=== PATIENT | male | born 1990 | race Caucasian/White ===

== ENCOUNTER 2024-10-22 10:03 | Inpatient (IN) | payer BC ==
[~2024-10-22] VITALS: Ht 175.3 cm; Wt 88.6 kg
--- NOTE | 2024-10-22 10:32 | Physician Documentation ---
History of Present Illness ~ Stated Complaint: N/V Time Seen by MD: 10:37 HPI This is a 33-year-old male with a history of alcoholism reports being unable to consume alcohol for the last 2-3 days secondary to ETOH withdrawal says over the last two weeks he has been drinking 1.75 L of hard alcohol daily he states that he has been unable to old alcohol down which leads some vomiting. Reports feeling tremulous. States that he does not have any chest pain but has a complaint of allover abdominal pain. This patient states he has had a history of seizures secondary to alcohol withdrawal MD History: Who presents with complaint of three days of vomiting and nausea. Towards the end he has been having some blood in the emesis as well, has been vomiting about 20 times per day, with diarrhea twice per day as well. He denies fever, does report diffuse abdominal pain which he describes as burning. He has a history of alcohol abuse, has been drinking what he refers to his about a half a gal a day of alcohol but has been unable to do so now due to the vo miting. He did try drinking alcohol about 6 hours ago but was unable to keep it down. Medication Reconciliation Allergies: Coded Allergies: Penicillins (Verified Allergy, Unknown, 10/22/24) Past Medical History Past Medical History: Seizures (Alcohol withdrawal related) Smoking Status: Current every day smoker Alcohol Use: Alcoholic Drug Use: marijuana Review of Systems All Other Systems at this time: Reviewed and Negative Physical Exam Physical Exam General: Alert, tremulous Cardiovascular: Tachycardic Gastrointestinal: Soft, nontender, nondistended. Bowels sounds present. Extremities: Normal range of motion, no deformity. Neurologic: Oriented x4. Psychiatric: Anxious appearing Skin: Normal color, warm and dry. No edema, no ecchymosis. Exam: General: Pt is awake, alert, oriented x4 in mild distress due to tremor and nausea Head: Normocephalic and atraumatic. Eyes: Conjunctiva normal. ENT: Mucous membranes dry Neck: Supple. Chest: Clear to auscultation bilaterally, without rales, rhonchi, or wheezes. There is no accessory muscle use or retractions. Cardiac: Regular rate and rhythm without murmurs, gallops or rubs. Palpation of the chest wall is normal. Abd: Soft, nondistended, mildly tender in the epigastrium, with normoactive bowel sounds. No guarding or rebound. Extremities: Within normal limits without cyanosis, clubbing, or edema. Skin: [place], warm and dry with no significant rash appreciated. Neuro: Cranial nerves II-XII grossly intact. The gait is not tested Progress Results/Orders Results/Orders Orders - BALDOMERO POSADA MD Ultrasound Of Abdomen (10/22/24 11:17) Page Hospitalist (10/22/24 12:07) Completed Orders - BALDOMERO POSADA MD Ondansetron Inj. (Zofran 4mg/2ml Vial) (10/22/24 10:55) Pantoprazole 40mg Iv (Protonix 40mg Iv) (10/22/24 12:10) Pantoprazole 40mg Iv (Protonix 40mg Iv) (10/22/24 12:10) Medications Received in ER Medications (Trade) Dose Ordered Sig/Thong Route PRN Reason Start Time Stop Time Status Last Admin Dose Admin (sodium chloride 1000ml IV soln) 2,000 ml ONCE ONCE IVB 10/22/24 10:35 10/22/24 10:36 DC 10/22/24 10:50 2,000 ML (Ativan inj) 2 mg ONCE ONCE IV 10/22/24 10:35 10/22/24 10:36 DC 10/22/24 10:50 2 MG (thiamine inj.) 100 mg ONCE ONCE IV 10/22/24 10:35 10/22/24 10:36 DC 10/22/24 10:51 100 MG (folic acid inj.) 1 mg ONCE ONCE IV 10/22/24 10:35 10/22/24 10:37 DC 10/22/24 10:58 1 MG Magnesium Sulfate 50 ml @ 25 mls/hr ONCE ONCE IV 10/22/24 10:35 10/22/24 12:34 10/22/24 10:51 25 MLS/HR (Zofran 4mg/2ml vial) 4 mg ONCE ONCE IV 10/22/24 10:55 10/22/24 10:56 DC 10/22/24 10:58 4 MG Vital Signs 10/22/24 10/22/24 10/22/24 10:28 11:01 11:10 Temp 98.1 98.1 Pulse 121 104 Resp 18 12 12 B/P (MAP) 137/90 140/89 (106) Pulse Ox 99 97 O2 Flow Rate 2.0 Laboratory Tests Test 10/22/24 10:43 White Blood Count 10.5 Red Blood Count 5.28 Hemoglobin 16.9 Hematocrit 48.3 Mean Corpuscular Volume 91.5 Mean Corpuscular Hemoglobin 31.9 H Mean Corpuscular Hemoglobin Concent 34.9 Red Cell Distribution Width 17.8 H Platelet Count 326 Mean Platelet Volume 6.2 L Neutrophils (%) (Auto) 72.7 Lymphocytes (%) (Auto) 16.3 L Monocytes (%) (Auto) 10.1 Eosinophils (%) (Auto) 0.4 Basophils (%) (Auto) 0.5 Neutrophils # (Auto) 7.6 Lymphocytes # (Auto) 1.7 Monocytes # (Auto) 1.1 H Eosinophils # (Auto) 0.0 Basophils # (Auto) 0.1 CBC Comment Sodium Level 133 L Potassium Level 3.2 L Chloride Level 84 L Carbon Dioxide Level 36.3 H Anion Gap 13 Blood Urea Nitrogen 8 Creatinine 1.42 H Estimated GFR/1.73 m2 57 BUN/Creatinine Ratio 5.6 L Glucose Level 112 H Calcium Level 10.0 Total Bilirubin 1.5 H Aspartate Amino Transf (AST/SGOT) 104 H Alanine Aminotransferase (ALT/SGPT) 103 H Alkaline Phosphatase 134 H Total Protein 8.3 H Albumin 4.7 Globulin 3.6 Albumin/Globulin Ratio 1.3 Lipase 24 Chemistry Comments Re-Evaluation Re-Evaluation : Re-Evaluation Time: 12:03 Progress Patient still tremulous, but no vomiting. Ultrasound was performed and is negative for any signs of biliary obstruction. Lipase negative so no pancreatitis present. Consults/PCP Consults/PCP : Time Call Requested: 12:06 Consult Reason/Comments: Hospitalist Additional Comment 12:15 Case d/w Dr. Monson's team, will admit Medical Decision Making Additional Comment Patient with history of alcoholism, attempting to stop, now with significant nausea and vomiting, with some degree of upper GI bleeding. He remains tremulous after treatment with benzodiazepines in the ED, and given his history of seizures with withdrawal we will plan admission for further evalu ation and management of his withdrawal as well as serial hemoglobin to monitor the GI bleeding. Departure Time of Disposition: 12:04 Admitted to Inpatient Unit: yes, to hospitalist Impression: Primary Impression: Alcohol withdrawal syndrome Qualified Codes: F10.939 - Alcohol use, unspecified with withdrawal, unspecified Additional Impressions: GI bleed Qualified Codes: K92.2 - Gastrointestinal hemorrhage, unspecified History of seizure due to alcohol withdrawal Transaminitis Elevated bilirubin Condition: Fair Referrals: NO PRIMARY CARE PROVIDER (PCP) Education Educated: Patient Educated regarding: diagnosis, treatment Signature Scribe Signature: Attestation: REMY WEISS NP Oct 22, 2024 10:32 BALDOMERO POSADA MD Oct 22, 2024 10:45
[2024-10-22] MEDS: normal saline 1000ML IV soln IVB ONE (10:50)
[2024-10-22] MEDS: magnesium sulf-water 2g/50mL 50 ML IV ONE (10:51)
[2024-10-22] MEDS: thiamine 100mg/ml 2ml inj. IV ONE (10:51)
[2024-10-22 10:52] LABS: MEAN PLATELET VOLUME 6.2 FL (7.4-10.4); RED CELL DISTRIBUTION WIDTH 17.8 % (11.5-14.5)
[2024-10-22] MEDS: ondansetron/PF 4mg/2ml inj IV ONE (10:58)
[2024-10-22] MEDS: folic acid 1mg/0.2ml inj IV ONE (10:58)
[2024-10-22 11:07] LABS: CREATININE 1.42 MG/DL (0.60-1.10); TOTAL CARBON DIOXIDE 36.3 MMOL/L (24-32); eCRCL 73 ML/MIN; eGFR 57 ML/MIN
[2024-10-22] MEDS ORDERED: pantoprazole 40mg IV 80 MG in normal saline 100ml IV soln 100 ML IV ONE (12:10)
[2024-10-22] MEDS ORDERED: haloperidol lactate 5mg/ml inj IM PRN (12:55)
--- NOTE | 2024-10-22 12:59 | RADIOLOGY REPORT ---
CLINICAL INFORMATION: Elevated bilirubin. Rule out obstruction. Nausea and vomiting. TECHNIQUE: Grayscale sonographic imaging of the right upper quadrant of the abdomen was performed, a ssisted by color Doppler techniques. COMPARISON: None FINDINGS: The gallbladder wall measures 1.2 mm in thickness, within normal limits. There is, tail artifact of the gallbladder fundus, may be seen with adenomyomatosis. No stones are seen. Negative re ported sonographic fernandez's sign. The common bile duct measures 3.4 mm in diameter, within normal li mits. Liver is enlarged, measuring up to 20.2 cm in craniocaudal dimension. Unremarkable echogenicity of th e liver. Small volume ascites visualized. The pancreas is obscured by bowel gas. The right kidney measures 11.3 cm. There is no hydronephrosis. Right renal cortical echogenicity a nd cortical thickness are within normal limits. IMPRESSION: 1. Findings in the gallbladder may be seen with adenomyomatosis in the appropriate clinical setting. No gallstones or evidence of acute cholecystitis. 2. No biliary ductal dilatation. 3. Hepatomegaly. 4. Small volume ascites.
[2024-10-22] MEDS ORDERED: mag hydrox/Alum hydrox/simeth 30ml oral suspension PO PRN (14:25)
[2024-10-22] MEDS ORDERED: magnesium hydroxide 30ml (MOM) UD suspension PO PRN (14:25)
[2024-10-22] MEDS ORDERED: magnesium sulf-water 4G/100mL 100 ML IV PRN (14:25)
[2024-10-22] MEDS ORDERED: potassium Cl 20 mEq SR tablet PO PRN (14:25)
[2024-10-22] MEDS ORDERED: ondansetron/PF 4mg/2ml inj IV PRN (14:25)
[2024-10-22] MEDS ORDERED: magnesium sulf-water 2g/50mL 50 ML IV PRN (14:25)
[2024-10-22] MEDS ORDERED: potassium Cl 40MEQ/1/2NS 520ml 520 ML IV PRN (14:25)
[2024-10-22] MEDS ORDERED: dextrose 50%-water 50ml dispensing syringe IV PRN (14:25)
[2024-10-22] MEDS ORDERED: magnesium Cl slow-release 64mg tablet PO PRN (14:25)
--- NOTE | 2024-10-22 14:32 | ELECTROCARDIOGRAPH REPORT ---
[facility] Test Date: 2024-10-22 Test Time: 10:42:40 Pat Name: SABINO PHAM Department: EMERGENCY ROOM Room: ED 1 1 Gender: M [employer]ile [employer]ter: ILEANA : 1990 Requested By: DEPARTMENT EMERGENCY Order Number: [id number] Reading MD: Measurements Intervals [place] Rate: 108 P: 76 VA: 149 QRS: 46 QRSD: 89 T: 40 QT: 345 QTc: 463 Interpretive Statements Sinus tachycardia Please click the below link to view image of tracing.
--- NOTE | 2024-10-22 14:44 | HISTORY AND PHYSICAL-Residence ---
History & Physical Providers to CC Resident Creating Document: FLAKITA HAY RES ~ History of Present Illness Reason for Admit\Complaint: Alcohol intoxication History of Present Illness This is a 33-year-old male with a history of alcoholism reports being unable to consume alcohol for the last 2-3 days secondary to alcohol withdrawal . Patient had multiple episodes of vomiting and of about 50 mL of hematemesis. Patient has mid epigastric pain. Patient has a past history of MRSA. Patient admits to being IV drug use of heroin and marijuana. Allergies: Coded Allergies: Penicillins (Verified Allergy, Unknown, 10/22/24) Past Medical History Past Medical History MRSA positive 10 years back Past Surgical History Surgical History Comment Debridement of the left shoulder post MRSA infection after injecting IV drugs Past Social History Social History Comment Alcoholic: For the last 15 years, he used to drink but the last 2 weeks he has had 1-1.5 L of vodka every day. Patient has history of IV heroin and marijuana use The patient denies any smoking history Family history Father has a history of parkinsonism Mother has a history of bipolar and schizophrenia Smoking: Other Alcohol Use: Alcoholic Drug Use: Marijuana, Heroin (Marijuana and heroin) Lives with: Other (Friends) Lives In: Home Occupation: employed ROS All Other Systems: Reviewed and Negative (Except for pertinent positive symptoms) Gastrointestinal: Reports: abdomen distended, abdominal pain Exam Vitals: Vital Signs Date Time Temp Pulse Resp B/P (MAP) Pulse Ox O2 Delivery O2 Flow Rate FiO2 10/22/24 13:19 110 12 126/73 (90) 94 10/22/24 12:48 98.1 2.0 General: General:Alert and oriented x4 HEENT:Normocephalic.Pupils equal round reactive to light and accommodation. Extraocular movements intact. Oral and nasal mucosa moist Neck:Trachea is in midline. No masses or JVD Chest:Bilateral normal breath sounds. No crackles, rhonchi or wheezes Cardiovascular: Tachycardic in the low 120s S1-S2 normal. No rubs or murmurs Abdomen: Patient has a burn scar on his abdomen and has tenderness in the epigastric region Extremities: No edema or cyanosis bilateral pulses felt Central Nervous System:No gross sensory or motor deficits. Skin: Warm and dry Diagnostic Data Last Recorded Lab Results: 10/22/24 1043 10/22/24 1043 Additional Plan Alcohol intoxication:CIWA-Ar score 10 for Alcohol Withdrawal Patient is a chronic alcoholic,has had 1.5-2 L of vodka for the last 2 weeks but could not drink anything since the last 3 days. He had repeated episodes of vomiting with 50 mL of hematemesis. Patient has been initiated with thiamine,folic acid and severe alcohol withdrawal program. Counseled the patient extensively on cessation of alcohol. Abdominal pain Region: Epigastric pain Differential diagnosis: Pancreatitis, repeated emesis,GERD,peptic ulcer disease,gastritis Patient complains of epigastric abdominal pain and rates it a 5 on 10,not radiating. Patient has mild tenderness on palpation near the epigastric area. Patient has normal levels of amylase and lipase. Patient has an AST 103 and ALT of 104 . Ultrasound abdomen reported:hepatomegaly and small volume ascites. Hematemesis Patient had few episodes of hematemesis of about 50 mL overall. His hemoglobin is at 16.9 we will continue to monitor his hemoglobin regularly. And plan for GI consult if necessary. Repeat hemogram has been ordered for 5:30 p.m. today. MRSA Patient has a past history of MRSA which was positive due to repeated IV injections of heroin 10 years back. During that time he had undergone debridement of his left for the same Withdrawal seizures Patient had 2 episodes withdrawal seizures in the past when he tried to quit alcohol. Code Status: full code DVT Prophylaxis: Heparin subcutaneous Analgesia/Sedation: Morphine, Dilaudid, [place] p.r.n. Lines/Tubes: PIV Gi Prophylaxis: Protonix Nutrition: NPO Prognosis: Guarded Disposition: Patient is on severe alcohol withdrawal protocol. We will continue to monitor the patient for any hematemesis and alcohol withdrawal symptoms Flakita Hay MD PGY-1 resident Date of Service: Oct 22, 2024 Billing Provider: SIOBHAN MENENDEZ MD,FLAKITA, RES Oct 22, 2024 14:44
--- NOTE | 2024-10-22 15:14 | RADIOLOGY REPORT ---
Exam: CT CT ABDOMEN PELVIS History: to rule out cirrhosis Comparison Study: None TECHNIQUE: Multidetector CT of the abdomen and pelvis was performed from lung bases to pubic symphysi s. Imaging was performed without IV contrast. Axial, coronal, and sagittal multiplanar reformats were obtained from the axial data set by the technologist. RADIATION DOSE: DLP 1170.15 mGy.cm; CTDI vol 24.0 mGy. Findings: Lungs: The lung bases are clear. Heart: No cardiomegaly or pericardial effusion. Liver: The liver measures 20.6 cm in craniocaudal dimension. Fatty infiltration of the liver. Normal hepatic contour. Gallbladder: Unremarkable. Spleen: Unremarkable Pancreas: Unremarkable Adrenals: Unremarkable Kidneys: Unremarkable GI tract: Unremarkable : Unremarkable. Vasculature: Unremarkable Lymphadenopathy: Absent Peritoneum: No ascites Musculoskeletal: Unremarkable Soft tissues: Unremarkable Impression: 1. No acute abdominopelvic abnormalities. 2. Hepatomegaly with hepatic steatosis. 3. Normal hepatic contour.
[2024-10-22 15:30] LABS: LEUKOCYTE ESTERASE ,URINE NEGATIVE (Neg); NITRITES, URINE NEGATIVE (Neg); OCCULT BLOOD,URINE MODERATE (Neg)
[2024-10-22 15:31] LABS: UA COLLECTION TYPE CLN CATCH MIDSTREAM
[2024-10-22 15:38] LABS: MUCUS STRANDS NONE SEEN /LPF (Neg); SQUAMOUS EPITHELIAL CELL,UR NONE SEEN /LPF (FEW)
[2024-10-22] MEDS ORDERED: BUPR1FIL3 SL (15:47)
[2024-10-22] MEDS: potassium Cl 20 mEq SR tablet PO PRN (16:04)
[2024-10-22] MEDS: normal saline 1000ml 1,000 ML IV ONE (16:05)
[2024-10-22 16:23] VITALS: BP 132/83; PULSE 122; RESP 18; TEMP 98.4; O2SAT 94
[2024-10-22 16:35] VITALS: RESP 16; O2SAT 94
[2024-10-22] MEDS: normal saline 1000ml 1,000 ML IV SCH (17:28)
[2024-10-22 17:58] LABS: MEAN PLATELET VOLUME 6.6 FL (7.4-10.4); RED CELL DISTRIBUTION WIDTH 17.8 % (11.5-14.5)
[2024-10-22 18:00] VITALS: BP 132/83; PULSE 122; RESP 16; TEMP 97.2; O2SAT 97
[2024-10-22 20:00] VITALS: BP_SYST 128; BP_SYST 130; BP_DIAS 79; BP_DIAS 81; BP_DIAS 86; PULSE 104; PULSE 106; PULSE 111; RESP 16; O2SAT 96
[2024-10-22] MEDS: K and/or MAG REPLACEMENT MC SCH (20:00)
[2024-10-22] MEDS: docusate sod 100mg capsule PO SCH (20:00)
[2024-10-22] MEDS: heparin, porcine 5000 units/ml vial SQ SCH (21:00)
[2024-10-22] MEDS: thiamine 100mg/ml 2ml inj. IV SCH (21:01)
[2024-10-22 22:00] VITALS: BP 133/81; PULSE 105; RESP 16; TEMP 98; O2SAT 96
[2024-10-22 22:04] LABS: MEAN PLATELET VOLUME 6.4 FL (7.4-10.4); RED CELL DISTRIBUTION WIDTH 17.5 % (11.5-14.5)
[2024-10-22] MEDS: nicotine 21mg patch - 24 hr TD SCH (22:11)
--- NOTE | 2024-10-23 02:22 | ELECTROCARDIOGRAPH REPORT ---
[facility] Test Date: 2024-10-22 Test Time: 14:43:01 Pat Name: SABINO PHAM Department: EMERGENCY ROOM Room: ORTHO [facility] [place] B Gender: M [employer]: : 1990 Requested By: DEPARTMENT EMERGENCY Order Number: [id number] Reading MD: Measurements Intervals [place] Rate: 110 P: 63 WI: 168 QRS: 26 QRSD: 86 T: 10 QT: 350 QTc: 474 Interpretive Statements Sinus tachycardia Borderline prolonged QT interval Please click the below link to view image of tracing.
[2024-10-23 05:54] LABS: MEAN PLATELET VOLUME 6.7 FL (7.4-10.4); RED CELL DISTRIBUTION WIDTH 17.4 % (11.5-14.5)
[2024-10-23 06:00] VITALS: BP 133/93; PULSE 94; RESP 16; TEMP 97; O2SAT 99
[2024-10-23 06:01] LABS: CHOL/HDL RATIO 3.0 (0.00-4.99); CREATININE 1.41 MG/DL (0.60-1.10); LDL CHOLESTEROL 53 MG/DL (50-100); PHOSPHORUS 2.8 MG/DL (2.3-4.5); TOTAL CARBON DIOXIDE 31.6 MMOL/L (24-32); eCRCL 74 ML/MIN; eGFR 58 ML/MIN
[2024-10-23 08:00] VITALS: BP_SYST 101; BP_SYST 105; BP_SYST 109; BP_DIAS 65; BP_DIAS 70; BP_DIAS 78; PULSE 70; PULSE 72; PULSE 74
[2024-10-23] MEDS: buprenorphine/naloxone 8MG-2MG SUBlingual film SL SCH (08:13)
[2024-10-23] MEDS: folic acid 1mg/0.2ml inj IV SCH (08:20)
[2024-10-23 10:00] VITALS: BP 105/84; PULSE 92; RESP 14; TEMP 98; O2SAT 98
[2024-10-23 11:17] LABS: MEAN PLATELET VOLUME 6.6 FL (7.4-10.4); RED CELL DISTRIBUTION WIDTH 17.6 % (11.5-14.5)
--- NOTE | 2024-10-23 13:01 | CARDIOLOGY REPORT ---
APPROVED REPORT EXAM: Comprehensive 2D, Doppler, and color-flow Echocardiogram. Patient Location: ER 1 Blood Pressure: 132/93 mmHg Heart Rate: 107 bpm Rhythm: SINUS TACHYCARDIA Indications HYPERTENSION [employer]: NONE Previous echo: NONE 2D Dimensions RVDd 3.2 cm IVSd 0.7 (0.7-1.1cm) LVDd 4.9 cm PWd 0.7 (0.7-1.1cm) IVSs 1.2 (0.8-1.2cm) LVDs 3.1 (2.5-4.0cm) PWs 1.5 (0.8-1.2cm) LVOT Diameter 2.17 (1.8-2.4cm) LVEF(%) 65.4 (>50%) FS (%) 35.9 % SV 72.8 ml CO 7.9 L/min M-Mode Dimensions Left Atrium(MM) 4.04 (2.5-4.0cm) Aortic Root 2.79 (2.2-3.7cm) Aortic Cusp Exc 2.08 (1.5-2.0cm) Aortic Valve AoV Peak Miguel. 182.6 cm/s AoV VTI 25.2 cm AO Peak GR. 13.3 mmHg AO Mean GR. 8 mmHg LVOT VTI 17.94 cm LVOT Peak Miguel. 162.0 cm/s EDSON(VTI)/BSA 2.64 cm2/m2 EDSON (VTI) 2.64 cm2 Mitral Valve MV E Velocity 84.9 cm/s MV Peak Gr. 7 mmHg MV DECEL TIME 100 ms MV A Velocity 56.7 cm/s MV PHT 46 ms E/A Ratio 1.5 MVA (PHT) 4.78 cm2 MV [id number] cm/s TDI Lateral E' P. V18.61 cm/s E/Lateral E' 4.6 LEFT VENTRICLE Normal LV size and wall thickness. Overall systolic function is normal. LVEF is 65%. RIGHT VENTRICLE RV is normal size and function. ATRIA Left atrium is mildly dilated. AORTIC VALVE Trileaflet AV appears normal without stenosis. No insufficiency. MITRAL VALVE Mild MV annular calcification without stenosis. Trace regurgitation. TRICUSPID VALVE TV appears structurally normal with trace regurgitation. PULMONIC VALVE Normal PV without stenosis, physiologic insufficiency. GREAT VESSELS The aortic root is normal in size. PERICARDIUM Normal pericardium. No effusion. Other Information Study Quality: Adequate, but TDS subcostal view.
[2024-10-23 14:43] LABS: MEAN PLATELET VOLUME 6.4 FL (7.4-10.4); RED CELL DISTRIBUTION WIDTH 17.7 % (11.5-14.5)
--- NOTE | 2024-10-23 15:04 | PROGRESS NOTE- Residence ---
Progress Note - Resident Providers to CC Resident Creating Document: FLAKITA HAY RES ~ Antibiotic Timeout Antibiotic Ordered?: No Subjective Patient was seen and examined at bedside. Patient claims he continues to feel better but appeared tremulous. No episodes of emesis Objective Vital Signs Date Time Temp Pulse Resp B/P (MAP) Pulse Ox O2 Delivery O2 Flow Rate FiO2 10/23/24 10:00 98.0 92 14 105/84 (91) 98 Room Air 10/23/24 08:00 0.0 General:Alert and oriented x4 HEENT:Normocephalic.Pupils equal round reactive to light and accommodation, scleral icterus present. Extraocular movements intact. Oral and nasal mucosa moist. Neck:Trachea is in midline. No masses or JVD Chest:Bilateral normal breath sounds. No crackles, rhonchi or wheezes Cardiovascular: Tachycardic in the low 120s S1-S2 normal. No rubs or murmurs Abdomen: Patient has a burn scar on his abdomen and has tenderness in the epigastric region Extremities: No edema or cyanosis bilateral pulses felt Central Nervous System:No gross sensory or motor deficits. Skin: Warm and dry Result Diagram: 10/23/24 1422 10/23/24 0511 Counseling Services Smoking & Tobacco Cessation: > 10 Minutes (We reiterated the patient multiple times on the importance of cessation of alcohol and smoking. Patient clearly understands the significant impact of alcohol and smoking) Assessment Assessment This is a 33-year-old male with a history of alcoholism reports being unable to consume alcohol for the last 2-3 days secondary to alcohol withdrawal . Patient had multiple episodes of vomiting and of about 50 mL of hematemesis. Patient has mid epigastric pain. Patient has a past history of MRSA. Patient admits to being IV drug use of heroin and marijuana. Patient admits to smoking 1 pack of cigarettes per day. Plan Plan Alcohol intoxication:CIWA-Ar score 10 for Alcohol Withdrawal Patient is a chronic alcoholic,has had 1.5-2 L of vodka for the last 2 weeks but could not drink anything since the last 3 days. He had repeated episodes of vomiting with 50 mL of hematemesis. Patient has been initiated with thiamine,folic acid and severe alcohol withdrawal program. Counseled the patient extensively on cessation of alcohol. Abdominal pain possibly alcoholic steatohepatitis Region: Epigastric pain Differential diagnosis: Pancreatitis, repeated emesis,GERD,peptic ulcer disease,gastritis Patient states his abdominal pain has come down significantly since yesterday Patient has mild tenderness on palpation near the epigastric area. Patient's ultrasound showed liver is enlarged measuring 20.2 cm Patient has elevated amounts of triglycerides at 350 TRANSAMINITIS Patient has normal levels of amylase and lipase. Patient has an AST 103 and ALT of 104 yesterday but it continues to trend downwards Ultrasound abdomen reported:hepatomegaly and small volume ascites. Hematemesis Patient had few episodes of hematemesis of about 50 mL overall. His hemoglobin was 16.9 and it continues her to have a drop dropped to 12.8 GI consult has been done and the patient is getting an endoscopy done tomorrow MRSA Patient has a past history of MRSA which was positive due to repeated IV injections of heroin 10 years back. During that time he had undergone debridement of his left for the same Withdrawal seizures Patient had 2 episodes withdrawal seizures in the past when he tried to quit alcohol. Code Status: full code Lines/Tubes: PIV Gi Prophylaxis: Protonix Nutrition: NPO Prognosis: Guarded Disposition: Patient is on severe alcohol withdrawal protocol. Patient is going to get an endoscopy done tomorrow. Patient will remain NPO from midnight Flakita Hay MD PGY-1 resident Date of Service: Oct 23, 2024 Billing Provider: SIOBHAN MENENDEZ MD, JAHNAVI, RES Oct 23, 2024 15:04
--- NOTE | 2024-10-23 16:01 | CONSULTATION ---
DATE OF CONSULTATION: 10/23/2024 DICTATING PHYSICIAN: Ryan Friedman MD REASON FOR CONSULTATION: Hematemesis and alcohol use disorder. HISTORY OF PRESENT ILLNESS: The patient is a 33-year-old, had been drinking heavily in the past 15 years. The past 2 weeks, he has been excessively drinking and came in because of inability to continue with daily activities and being very tremulous. He also complains of his gastric pain and few episodes of hematemesis. Hemoglobin and hematocrit, however, are stable. He states he has had similar episodes in the past. When he came in, his hemoglobin and hematocrit were stable. AST, ALT were modestly elevated. Coagulation profile not available. Platelet count was normal. CT scan showed fatty liver. There was no evidence of any ascites. PAST MEDICAL HISTORY: Noncontributory. FAMILY HISTORY: Noncontributory. PERSONAL HISTORY: As mentioned above, he has a history of alcoholism. REVIEW OF SYSTEMS: Same as history of present illness. PHYSICAL EXAMINATION: GENERAL: He is awake, alert, ambulatory, friendly, cooperative, mildly tremulous. VITAL SIGNS: Normal. NECK: Supple. No thyromegaly. No JVD. No significant lymphadenopathy. HEENT: Oral cavity within normal limits. HEART: Normal. LUNGS: Normal. ABDOMEN: Soft, nontender. No masses, no organomegaly. Bowel sounds are present. EXTREMITIES: Reveal no clubbing, cyanosis, or edema. NEUROLOGIC: Cranial nerves bilaterally within normal limits. Neurological exam reveals some mild tremulousness. Otherwise, essentially normal. HEMATOLOGIC: Reveals no anemia, petechiae, or purpura. PSYCHOLOGIC: Within normal limits. LABORATORY VALUES: Were reviewed as mentioned above. IMPRESSION: The patient admitted with alcohol use disorder, has epigastric pain and hematemesis. He will benefit from an endoscopy. The risks and benefits explained, which he understands and wishes to proceed. Endoscopy is to evaluate for the bleeding source and also to evaluate if he has any varices. I doubt that he would have varices as the ultrasound does not show any cirrhotic changes. The risks and the benefits of endoscopy explained which he understands and wishes to proceed. Further recommendations will be made after the endoscopy. Ryan Friedman MD TID: [id number] RECEIPT: [id number] KATIUSKA/KATHY
[2024-10-23 18:00] VITALS: BP 111/69; PULSE 96; RESP 18; TEMP 97.8; O2SAT 97
[2024-10-23 19:47] LABS: MEAN PLATELET VOLUME 6.1 FL (7.4-10.4); RED CELL DISTRIBUTION WIDTH 17.8 % (11.5-14.5)
[2024-10-23 20:00] VITALS: BP_SYST 138; BP_SYST 146; BP_DIAS 105; BP_DIAS 97; PULSE 101; PULSE 96; RESP 16; O2SAT 98
[2024-10-23] MEDS: propranolol 10mg tablet PO SCH (20:12)
[2024-10-23 22:00] VITALS: BP 136/83; PULSE 91; RESP 16; TEMP 97.5; O2SAT 98
[2024-10-23] MEDS: haloperidol lactate 5mg/ml inj IM PRN (22:11)
[2024-10-23 23:16] LABS: MEAN PLATELET VOLUME 6.8 FL (7.4-10.4); RED CELL DISTRIBUTION WIDTH 17.9 % (11.5-14.5)
[2024-10-24] VITALS (12 sets, daily range): BP systolic 87–127; BP diastolic 63–86; PULSE 70–83; RESP 12–19; TEMP 96.3–98; O2SAT 95–98
[2024-10-24 03:34] LABS: URINE AMPHETAMINE SCREEN NEGATIVE (Neg); URINE BARBITUATE SCREEN NEGATIVE (Neg); URINE BENZODIAZEPINES SCREEN POSITIVE (Neg); URINE COCAINE SCREEN NEGATIVE (Neg); URINE METHADONE SCREEN NEGATIVE (Neg); URINE OPIATE SCREEN NEGATIVE (Neg); URINE PHENCYCLIDINE SCREEN NEGATIVE (Neg)
[2024-10-24 04:59] LABS: MEAN PLATELET VOLUME 6.5 FL (7.4-10.4); RED CELL DISTRIBUTION WIDTH 17.9 % (11.5-14.5)
[2024-10-24 05:13] LABS: CREATININE 1.05 MG/DL (0.60-1.10); PHOSPHORUS 2.0 MG/DL (2.3-4.5); TOTAL CARBON DIOXIDE 26.4 MMOL/L (24-32); eCRCL 99 ML/MIN; eGFR 81 ML/MIN
[2024-10-24] MEDS ORDERED: simethicone 40mg/0.6ml oral drops 30ml ONE (10:20)
[2024-10-24] MEDS ORDERED: propofol inj 20 ML IV ONE (10:40)
[2024-10-24] MEDS ORDERED: PROP10TA10 PO (13:55)
[2024-10-24] MEDS ORDERED: FOLI1TAB27 PO (13:55)
[2024-10-24] MEDS ORDERED: NICO-687 TD (13:55)
[2024-10-24] MEDS ORDERED: MULT-1085 PO (13:55)
[2024-10-24] MEDS ORDERED: thiamine tablet PO (13:55)
[2024-10-24] MEDS ORDERED: CHLO25CA10 PO (14:16)
--- NOTE | 2024-10-24 16:55 | DISCHARGE SUMMARY-Residence ---
Discharge Summary Providers to CC Resident Creating Document: FLAKITA HAY, RES ~ Discharge Summary Admission Diagnosis: Alcohol intoxication Hospital Course DATE OF ADMISSION: 10/22/2024 DATE OF DISCHARGE: 10/24/2024 Discharge Diagnosis\Comment: Alcohol Withdrawal Alcoholic steatohepatitis TRANSAMINITIS Operations\Procedures: Esophageal gastroduodenoscopy Consultants: ,dietary service aide Complications: none Condition on DC: Stable New Medications: Chlordiazepoxide HCl (Chlordiazepoxide HCl) 25 Mg Capsule 1 CAP PO Q8H PRN for anxiety, #15 CAP 0 Refills Multivitamin (Multi Vitamin Daily) 1 Each Tablet 1 TAB PO DAILY for 30 Days, #30 TAB 0 Refills Folic Acid* (Folic Acid*) Y Tab 1 MG PO DAILY for 30 Days, #30 TAB Nicotine 21 MG Patch* (Habitrol 21 MG Patch*) 1 Each Patch.td24 1 PATCH TD DAILY for 1 Day, #1 PATCH Propranolol Hcl* (Inderal*) 10 Mg Tablet 20 MG PO BID for 30 Days, #60 TAB [thiamine tablet] () 100 MG TABLET 100 MG PO DAILY for 30 Days, #30 Continued Medications: Buprenorphine Hcl/Naloxone Hcl (Suboxone 8 Mg-2 Mg Sl Film) 8 Mg-2 Mg Film 1 STRIP SL DAILY for 30 Days, #30 STRIP Discharge Summary: [place] according to admitting physician: This is a 33-year-old male with a history of alcoholism reports being unable to consume alcohol for the last 2-3 days secondary to ETOH withdrawal says over the last two weeks he has been drinking 1.75 L of hard alcohol daily he states that he has been unable to old alcohol down which leads some vomiting. Reports feeling tremulous. States that he does not have any chest pain but has a complaint of allover abdominal pain. Patient has a past history of MRSA positive for which he underwent debridement of his left shoulder 10 years back. This patient states he has had a history of seizures secondary to alcohol withdrawal. Hospital course: This is a 33-year-old male with a history of alcoholism reports being unable to consume alcohol for the last 2-3 days secondary to alcohol withdrawal Patient has been initiated with thiamine,folic acid chlordiazepoxide and severe alcohol withdrawal program. Patient had multiple episodes of vomiting at home and of about 50 mL of hematemesis. Complained of epigastric pain, his triglycerides were elevated at 350 an ultrasound of his abdomen showed liver enlarged to 20.2 cm and small v olume ascites. Patient has had an increase of his AST 103 and ALT 104 initially but it continued to trend down, but his amylase and lipase were normal. The patient had few episodes of hematemesis at home of about 50 mL did not have any hematemesis in the hospital. His hemoglobin was 16.9 which dropped to 12.8 during the course of his stay and an EGD was done to rule out upper g astrointestinal bleed. EGD showed LA grade C reflux esophagitis with no bleeding and gastritis. Biopsy samples have been sent. Vital Signs Date Time Temp Pulse Resp B/P (MAP) Pulse Ox O2 Delivery O2 Flow Rate FiO2 10/24/24 12:35 127/82 (97) 10/24/24 11:38 98.0 80 14 96 Room Air 10/24/24 10:50 0.0 Laboratory Tests Test 10/22/24 17:31 10/22/24 21:00 10/22/24 21:52 10/23/24 05:11 White Blood Count 5.4 X10'3 5.3 X10'3 5.3 X10'3 Red Blood Count 4.54 X10'6 4.27 X10'6 4.60 X10'6 Hemoglobin 14.6 g/dl 13.6 g/dl 14.8 g/dl Hematocrit 42.1 % 39.4 % 43.4 % Mean Corpuscular Volume 92.8 FL 92.3 FL 94.3 FL Mean Corpuscular Hemoglobin 32.2 PG 31.8 PG 32.1 PG Mean Corpuscular Hemoglobin Concent 34.7 g/dL 34.4 g/dL 34.0 g/dL Red Cell Distribution Width 17.8 % 17.5 % 17.4 % Platelet Count 268 X10'3 246 X10'3 252 X10'3 Mean Platelet Volume 6.6 FL 6.4 FL 6.7 FL Hematology Comments Glucometer 125 mg/dl Neutrophils (%) (Auto) 54.5 % Lymphocytes (%) (Auto) 34.9 % Monocytes (%) (Auto) 8.1 % Eosinophils (%) (Auto) 1.6 % Basophils (%) (Auto) 0.9 % Neutrophils # (Auto) 2.9 X10'3 Lymphocytes # (Auto) 1.8 X10'3 Monocytes # (Auto) 0.4 X10'3 Eosinophils # (Auto) 0.1 X10'3 Basophils # (Auto) 0.0 X10'3 CBC Comment Sodium Level 141 MMOL/L Potassium Level 4.0 MMOL/L Chloride Level 102 MMOL/L Carbon Dioxide Level 31.6 MMOL/L Anion Gap 7 Blood Urea Nitrogen 8 MG/DL Creatinine 1.41 MG/DL Estimated GFR/1.73 m2 58 ML/MIN BUN/Creatinine Ratio 5.7 Glucose Level 100 MG/DL Calcium Level 8.2 MG/DL Phosphorus Level 2.8 MG/DL Magnesium Level 2.7 MG/DL Total Bilirubin 1.2 MG/DL Aspartate Amino Transf (AST/SGOT) 93 U/L Alanine Aminotransferase (ALT/SGPT) 75 U/L Alkaline Phosphatase 113 IU/L Total Protein 6.9 G/DL Albumin 3.7 G/DL Globulin 3.2 G/DL Albumin/Globulin Ratio 1.2 Triglycerides Level 350 MG/DL Cholesterol Level 161 MG/DL LDL Cholesterol 53 MG/DL HDL Cholesterol 53 MG/DL Cholesterol/HDL Ratio 3.0 Chemistry Comments Test 10/23/24 07:49 10/23/24 10:42 10/23/24 12:59 10/23/24 14:22 Glucometer 114 mg/dl 104 mg/dl White Blood Count 3.7 X10'3 4.1 X10'3 Red Blood Count 4.00 X10'6 3.99 X10'6 Hemoglobin 13.0 g/dl 12.8 g/dl Hematocrit 37.5 % 37.2 % Mean Corpuscular Volume 93.9 FL 93.3 FL Mean Corpuscular Hemoglobin 32.4 PG 32.1 PG Mean Corpuscular Hemoglobin Concent 34.5 g/dL 34.4 g/dL Red Cell Distribution Width 17.6 % 17.7 % Platelet Count 193 X10'3 189 X10'3 Mean Platelet Volume 6.6 FL 6.4 FL Hematology Comments Test 10/23/24 17:14 10/23/24 18:58 10/23/24 19:40 10/23/24 22:18 Glucometer 100 mg/dl Hematology Comments White Blood Count 6.3 X10'3 6.0 X10'3 Red Blood Count 3.97 X10'6 4.16 X10'6 Hemoglobin 12.8 g/dl 13.2 g/dl Hematocrit 37.1 % 38.9 % Mean Corpuscular Volume 93.6 FL 93.6 FL Mean Corpuscular Hemoglobin 32.1 PG 31.8 PG Mean Corpuscular Hemoglobin Concent 34.4 g/dL 34.0 g/dL Red Cell Distribution Width 17.8 % 17.9 % Platelet Count 183 X10'3 200 X10'3 Mean Platelet Volume 6.1 FL 6.8 FL Test 10/24/24 02:10 10/24/24 02:30 10/24/24 04:46 10/24/24 07:53 Glucometer 97 mg/dl 99 mg/dl Urine Opiates Screen Negative Urine Methadone Screen Negative Urine Fentanyl Screen Negative Urine Barbiturates Screen Negative Urine Phencyclidine Screen Negative Urine Amphetamines Screen Negative Urine Benzodiazepines Screen Positive Urine Cocaine Screen Negative Urine Cannabinoids Screen Drug Screen Comment White Blood Count 4.4 X10'3 Red Blood Count 4.01 X10'6 Hemoglobin 12.9 g/dl Hematocrit 37.9 % Mean Corpuscular Volume 94.3 FL Mean Corpuscular Hemoglobin 32.0 PG Mean Corpuscular Hemoglobin Concent 33.9 g/dL Red Cell Distribution Width 17.9 % Platelet Count 177 X10'3 Mean Platelet Volume 6.5 FL Neutrophils (%) (Auto) 58.5 % Lymphocytes (%) (Auto) 29.5 % Monocytes (%) (Auto) 9.3 % Eosinophils (%) (Auto) 1.8 % Basophils (%) (Auto) 0.9 % Neutrophils # (Auto) 2.6 X10'3 Lymphocytes # (Auto) 1.3 X10'3 Monocytes # (Auto) 0.4 X10'3 Eosinophils # (Auto) 0.1 X10'3 Basophils # (Auto) 0.0 X10'3 CBC Comment Sodium Level 144 MMOL/L Potassium Level 4.2 MMOL/L Chloride Level 111 MMOL/L Carbon Dioxide Level 26.4 MMOL/L Anion Gap 7 Blood Urea Nitrogen 7 MG/DL Creatinine 1.05 MG/DL Estimated GFR/1.73 m2 81 ML/MIN BUN/Creatinine Ratio 6.7 Glucose Level 103 MG/DL Calcium Level 7.8 MG/DL Phosphorus Level 2.0 MG/DL Magnesium Level 2.2 MG/DL Total Bilirubin 0.6 MG/DL Aspartate Amino Transf (AST/SGOT) 72 U/L Alanine Aminotransferase (ALT/SGPT) 67 U/L Alkaline Phosphatase 93 IU/L Total Protein 5.9 G/DL Albumin 3.2 G/DL Globulin 2.7 G/DL Albumin/Globulin Ratio 1.2 Chemistry Comments Test 10/24/24 12:03 Glucometer 94 mg/dl Significant imaging findings: Ultrasound abdomen findings: Findings in the gallbladder may be seen with adenomyomatosis in the appropriate clinical setting. No gallstones or evidence of acute cholecystitis. No biliary ductal dilatation. Hepatomegaly. Small volume ascites. CT abdomen findings 1. No acute abdominopelvic abnormalities. 2. Hepatomegaly with hepatic steatosis. 3. Normal hepatic contour. Echo: Findings were normal with the EF of 60-65% Discharge medications: Chlordiazepoxide HCL 25mg Folic acid 1 mg Multivitamin tab Nicotine 21 mg patch Thiamine 100 mg Propranolol 10 mg Buprenorphine Hcl/Naloxone Hcl 8 Mg-2 Mg Film Discharge advice: - follow up with PCP in 1 week - strict alcohol and illicit drug use abstinence - follow up medications as prescribed- folic acid, multivitamin and thiamine - call 911/go to the nearby ED if any emergencies - continue medication Librium for severe alcohol withdrawal symptoms. *Problems/Diagnosis: (1) Alcohol withdrawal syndrome Status: Acute (2) Transaminitis Status: Acute (3) History of seizure due to alcohol withdrawal Status: Acute (4) GI bleed Status: Acute Total Time Spent on D/C: > 30 Minutes Counseling Services Smoking & Tobacco Cessation: > 10 Minutes (Patient was advised extensively on cessation of alcohol and smoking.) Date of Service: Oct 24, 2024 Billing Provider: SIOBHAN MENENDEZ MD Problem Qualifiers (1) Alcohol withdrawal syndrome: Complication of substance-induced condition: with unspecified complication Qualified Codes: F10.939 - Alcohol use, unspecified with withdrawal, unspecified (2) GI bleed: GI bleed type/associated pathology: unspecified gastrointestinal hemorrhage type Qualified Codes: K92.2 - Gastrointestinal hemorrhage, unspecified FLAKITA HAY, RES Oct 24, 2024 16:55
--- NOTE | 2024-10-25 14:27 | PATHOLOGY REPORT ---
[facility] [address] [place] [address] SURGICAL PATHOLOGY REPORT CaseNumber: [id number] Surgeon:Ryan Friedman M.D. CLINICAL INFORMATION CLINICAL INFORMATION: Epigastric abdominal pain, hematemesis. DIAGNOSIS DIAGNOSIS: GASTRIC ANTRUM, BIOPSIES X 3 - NO SIGNIFICANT INFLAMMATION, EDEMA, OR VASCULAR CONGESTION - NO INTESTINAL METAPLASIA BY PAS STAINING - NO DYSPLASIA OR MALIGNANCY - NO H. PYLORI ORGANISMS ARE HIGHLIGHTED BY IMMUNOHISTOCHEMISTRY MICROSCOPIC DESCRIPTION MICROSCOPIC DESCRIPTION: Reviewed is a single H&E-stained slide showing serial sections and levels of three fragments of gastric antral type mucosa. There is no significant inflammation, edema, or vascu lar congestion. There is no intestinal metaplasia by PAS staining. There are no dysplastic or neoplas tic features. Also, no H. pylori organisms are highlighted by immunohistochemistry. GROSS DESCRIPTION GROSS DESCRIPTION: Received in a container of formalin labeled with the patients name, number, and "a ntrum BX" are 3 pieces of astorga tissue 0.2-0.4 x 0.2 x 0.1 cm. The specimen is entirely submitted as A1 . The time at which the specimen was removed was 1038. The time at which the specimen was placed in formalin was 1038. Electronically signed by: Max Gregg M.D. 10/25/2024 1:57:00 PM
== END 2024-10-24 14:37 | disposition home or self-care (01) | DRG 368 ==
LOC: ER 10:04 → ED HOLD 12:19 → ORTHO 4S 16:01
PROVIDERS: ADMIT Family Medicine; ATTEND Family Medicine
PROC: 05HC33Z Insertion of Infusion Device into Left Basilic Vein, Percutaneous Approach (ICD-10-PCS; 2024-10-24)
PROC: 0DB78ZX Excision of Stomach, Pylorus, Via Natural or Artificial Opening Endoscopic, Diagnostic (ICD-10-PCS; principal; 2024-10-24 10:20)
DX: K21.01 Gastro-esophageal reflux disease with esophagitis, with bleeding (principal); K29.71 Gastritis, unspecified, with bleeding; F10.239 Alcohol dependence with withdrawal, unspecified; F10.220 Alcohol dependence with intoxication, uncomplicated; K76.0 Fatty (change of) liver, not elsewhere classified; K70.10 Alcoholic hepatitis without ascites; Z87.891 Personal history of nicotine dependence
CPT/HCPCS: 36410; 36415; 43239; 74176; 76700; 76937; 80053; 80061; 80305; 81001; 82948; 83036; 83690; 83735; 84100; 85025; 85027; 87081; 93005; 93306; 99285; A4615; A4620; C1751; G0378; J1630; J1644; J2060; J2405; J2470; J2704; J3411; J3490; J7030

== ENCOUNTER 2024-11-10 11:58 | Emergency (ER) | payer BC ==
[~2024-11-10] VITALS: Ht 172.7 cm; Wt 89.9 kg
[~2024-11-10 11:58] MED LIST: BUPR1FIL3 SL; CHLO25CA10 PO; FOLI1TAB27 PO; MULT-1085 PO; NICO-687 TD; PROP10TA10 PO; thiamine tablet PO
[2024-11-10 12:00] VITALS: TEMP 98.6
[2024-11-10 13:32] LABS: MEAN PLATELET VOLUME 6.4 FL (7.4-10.4); RED CELL DISTRIBUTION WIDTH 16.7 % (11.5-14.5)
[2024-11-10 13:47] LABS: CREATININE 0.74 MG/DL (0.60-1.10); TOTAL CARBON DIOXIDE 18.7 MMOL/L (24-32); eCRCL 136 ML/MIN; eGFR > 90 ML/MIN
[2024-11-10] MEDS: ondansetron/PF 4mg/2ml inj IV ONE (14:54)
[2024-11-10] MEDS: normal saline 1000ML IV soln IVB ONE (14:54)
--- NOTE | 2024-11-10 15:09 | RADIOLOGY REPORT ---
CT CT ABDOMEN INDICATION: elevated lipase, alcoholism, elevated liver enzymes EXAM DATE: 11/10/2024 02:39 PM COMPARISON: US ULTRASOUND OF ABDOMEN on DOS: 10/22/24 RADIATION DOSE: CTDIvol: 22 mGy, DLP: 656 mGy*cm PROCEDURE: Helical CT images were obtained of the abdomen and pelvis without IV contrast Sagittal and coronal reconstructions are provided. ORAL CONTRAST: None. ADDITIONAL IMAGES / REFORMATS: None All C T scans at this medical facility are performed using dose modulation techniques as appropriate to a p erformed exam including the following: Automated exposure control was utilized; adjustment of the MA and/or KV according to patient size; and use of iterative reconstruction technique. FINDINGS: LUNG BASE: Normal. LIVER: Hepatic steatosis. GALLBLADDER AND BILIARY TREE: No calcified gallstones. Normal caliber wall. No intra- or extrahepatic biliary ductal dilation. PANCREAS: Normal. SPLEEN: Normal. BOWEL: Normal. ADRENALS: Normal. KIDNEYS AND URETER: Normal. LYMPH NODES:No lymphadenopathy. PERITONEUM: No ascites or free air. No other fluid collection. VESSELS: Normal. RETROPERITONEUM: Normal. ABDOMINAL WALL: Normal. BONES: Normal. IMPRESSION: No acute intraabdominal abnormality. Prominent hepatic steatosis.
--- NOTE | 2024-11-10 15:37 | Physician Documentation ---
History of Present Illness Chief Complaint: ETOH Stated Complaint: ETOH Time Seen by MD: 12:09 Source: patient Mode of Arrival: POV Exam Limitations: no limitations HPI 33-year-old male with chief complaint alcohol withdrawal. he states he last had a drink of alcohol this morning around 7:00 a.m.. He reports he has been vomiting since. Reports abdominal pain in his epigastric area the stomach. No blood in vomit. No blood in stool. No hallucinations, delirium, headaches, cp, sob. Medication Reconciliation Allergies: Coded Allergies: Penicillins (Verified Allergy, Unknown, 10/22/24) Scheduled Buprenorphine Hcl/Naloxone Hcl (Suboxone 8 Mg-2 Mg Sl Film), 1 STRIP SL DAILY, (Reported) Folic Acid* (Folic Acid*), 1 MG PO DAILY Multivitamin (Multi Vitamin Daily), 1 TAB PO DAILY Nicotine 21 MG Patch* (Habitrol 21 MG Patch*), 1 PATCH TD DAILY Propranolol Hcl* (Inderal*), 20 MG PO BID [thiamine tablet], 100 MG PO DAILY Scheduled PRN Chlordiazepoxide HCl (Chlordiazepoxide HCl), 1 CAP PO Q8H PRN for anxiety Past Medical History Past Medical History: Seizures Patient History: Patient reports no known family medical history. Alcohol Use: Alcoholic Drug Use: marijuana, heroin Lives with: Other Lives In: Home Occupation: employed Review of Systems All Other Systems at this time: Reviewed and Negative Physical Exam Vital Signs: Temperature: 98.6, Source: Oral, Heart Rate: 115, Respiratory Rate: 18, BP: 116/71, Pulse Oximetry: 96, Weight: 89.900 Oxygen Flow Rate: 0 Physical Exam GENERAL: Alert, MILD acute distress holding emesis bag, emesis bag empty HEENT: NCAT, EOMI, PERRL, normal oropharynx, moist oral mucosa. NECK: Supple, trachea midline. CARDIAC: Regular rate and rhythm, no murmurs, rubs, or gallops. Equal distal pulses. No lower extremity edema, cap refill less than 2 seconds. RESPIRATORY: Equal breath sounds, clear to auscultation bilaterally, no respiratory distress. GASTROINTESTINAL: Non distended, soft, MILD EPIGASTRIC TTP, No guarding or rebound. MUSCULOSKELETAL: Normal range of motion, nontender, no swelling. Normal gait. NEUROLOGICAL: Awake, alert, and oriented x 3. SKIN: Warm/dry, no pallor, no rash. PSYCH: Alert and appropriate. Affect congruent with mood. Speech is clear. Good eye contact. Progress Results/Orders Reviewed/noted all lab results: Yes Results/Orders Orders - GILBERTO TRIPATHI Ct Abdomen (11/10/24 14:05) Completed Orders - GILBERTO TRIPATHI Lorazepam Tablet (Ativan Tablet) (11/10/24 14:05) Normal Saline 1000ml (0.9% Sodium Chlori (11/10/24 14:05) Ondansetron Inj. (Zofran 4mg/2ml Vial) (11/10/24 14:05) Ct Abdomen (11/10/24 14:05) Medications Received in ER Medications (Trade) Dose Ordered Sig/Thong Route PRN Reason Start Time Stop Time Status Last Admin Dose Admin (Ativan tablet) 1 mg ONCE ONCE PO 11/10/24 14:05 11/10/24 14:06 DC 11/10/24 14:54 1 MG (0.9% sodium chloride (NS) 1000ml IV soln) 1,000 ml ONCE ONCE IVB 11/10/24 14:05 11/10/24 14:06 DC 11/10/24 14:54 1,000 ML (Zofran 4mg/2ml vial) 4 mg ONCE ONCE IV 11/10/24 14:05 11/10/24 14:06 DC 11/10/24 14:54 4 MG Vital Signs 11/10/24 11/10/24 11/10/24 11/10/24 12:00 13:45 14:14 15:21 Temp 98.6 Pulse 136 116 115 Resp 20 18 18 B/P (MAP) 171/92 114/72 (86) 116/71 (86) Pulse Ox 96 97 96 O2 Flow Rate 0 0 0 Laboratory Tests Test 11/10/24 13:22 White Blood Count 7.1 Red Blood Count 5.09 Hemoglobin 16.4 Hematocrit 46.9 Mean Corpuscular Volume 92.2 Mean Corpuscular Hemoglobin 32.2 H Mean Corpuscular Hemoglobin Concent 34.9 Red Cell Distribution Width 16.7 H Platelet Count 435 Mean Platelet Volume 6.4 L Neutrophils (%) (Auto) 68.2 Lymphocytes (%) (Auto) 24.9 Monocytes (%) (Auto) 5.3 Eosinophils (%) (Auto) 0.3 Basophils (%) (Auto) 1.3 H Neutrophils # (Auto) 4.9 Lymphocytes # (Auto) 1.8 Monocytes # (Auto) 0.4 Eosinophils # (Auto) 0.0 Basophils # (Auto) 0.1 CBC Comment Sodium Level 134 L Potassium Level 3.9 Chloride Level 93 L Carbon Dioxide Level 18.7 L Anion Gap 22 H Blood Urea Nitrogen 8 Creatinine 0.74 Estimated GFR/1.73 m2 > 90 BUN/Creatinine Ratio 10.8 Glucose Level 106 H Calcium Level 8.4 L Total Bilirubin 1.4 H Aspartate Amino Transf (AST/SGOT) 209 H Alanine Aminotransferase (ALT/SGPT) 163 H Alkaline Phosphatase 189 H Total Protein 8.4 H Albumin 4.6 Globulin 3.8 Albumin/Globulin Ratio 1.2 Lipase 222 H Chemistry Comments Medical Decision Making Differential Dx:Considerations: Include: AAA, Angina/PA, Aortic dissection, Appendicitis, Bowel obstruction, Cholangitis, Cholelithasis, Constipation, Diverticular disease, Esophageal rupture, Esophagitis, Gastritis/PUD, Gastroenteritis, GI hemorrhage, Hernia, Hepatitis, Inflammatory BD, Ischemic bowel, Pancreatitis, Porphyria, Testicular torsion, Trauma, intraabdominal, Urinary obstruction, Urinary tract infection, Urolithiasis Additional Comments LIPASE IS ELEVATED [address] SHOWS NO EVIDENCE FOR PANCREATITIS ON IMAGING STUDY PATIENT HAS NO FINDINGS ON IMAGING CONCERNING FOR OBSTRUCTIVE ISSUE WITH GALLBLADDER NOR DOES HE HAVE FINDINGS ON EXAM OF THIS Departure Time of Disposition: 15:33 Disposition: 01 HOME / SELF CARE / HOMELESS Impression: Primary Impression: Alcohol abuse Additional Impression: Alcoholic hepatitis without ascites Condition: Stable Discharge Instructions: Alcohol Abuse and Nutrition Additional Instructions: YOU ARE MEDICALLY CLEARED FOR EMPIRE/DETOX Referrals: NO PRIMARY CARE PROVIDER (PCP) Education Educated: Patient Educated regarding: diagnosis, treatment, need for follow up Signature Scribe Signature: x Attestation: GILBERTO Reyes Nov 10, 2024 15:37
[2024-11-10 18:27] VITALS: BP 124/76; PULSE 119; RESP 22; O2SAT 97
== END 2024-11-10 16:30 | disposition home or self-care (01) ==
LOC: ER 11:59
DX: K70.10 Alcoholic hepatitis without ascites (principal); F12.90 Cannabis use, unspecified, uncomplicated; F11.90 Opioid use, unspecified, uncomplicated; Z88.0 Allergy status to penicillin; Z79.899 Other long term (current) drug therapy; Y90.9 Presence of alcohol in blood, level not specified
CPT/HCPCS: 36415; 74150; 80053; 83690; 85025; 96361; 96374; 99285; J2405; J7030